=== PATIENT | female | born 1940 | race Caucasian/White ===

== ENCOUNTER 2021-10-20 18:54 | Emergency (ER) | payer MEDICARE, MEDICAID, SELFPAY ==
--- NOTE | ~2021-10-20 | CT_ITS ---
EXAMINATION: CT brain wo con DATE: 10/20/2021 20:26 INDICATION: Status post fall. Left cheek and mouth laceration. TECHNIQUE: Computed tomography (CT) of the head was performed without intravenous contrast. The dose- length product was 756.67 mGy-cm. Automated exposure control and iterative reconstruction technique w ere employed. COMPARISON: None FINDINGS: Generalized atrophy. There are scattered mild periventricular and subcortical white matter changes, most likely related to small vessel ischemic disease (microangiopathy). No ventriculomegaly or midline shift. Basilar cisterns are patent. Paranasal sinuses and mastoids are pneumatized. There is intracranial atherosclerosis. There is a mucous retention cyst of the sphenoid sinus. No acute int racranial hemorrhage, infarction, mass or mass effect. No depressed skull fractures. IMPRESSION: 1. No acute intracranial abnormality. 2: Chronic age-related findings. Reviewed, dictated and finalized at location A. SIDE GRINDER
--- NOTE | ~2021-10-20 | CT_ITS ---
EXAMINATION: CT facial & cervical spine wo DATE: 10/20/2021 20:26 INDICATION: Status post fall. Neck pain and cheek laceration. TECHNIQUE: Computed tomography (CT) of the maxillofacial region and cervical spine was performed with out intravenous contrast. The dose-length product was 412.56 mGy-cm. Automated exposure control and i terative reconstruction technique were employed. COMPARISON: None FINDINGS: MAXILLOFACIAL CT: There is a left facial soft tissue laceration. Nasal bones intact. Zygomatic arch is intact. No orbit al fracture is seen. There is scant mucosal thickening of the sinuses. Pterygoid plates within normal limits. Study limited by motion artifact. Mandible appears to be intact with symmetric temporomandib ular joints. There is atherosclerosis of the carotid arteries. No acute maxillofacial fracture. CERVICAL SPINE CT: Vertebral body heights are maintained. There is disc narrowing at multiple levels. There is degenerat edna anterolisthesis at C6-7. There is multilevel facet and uncinate hypertrophy with mild dextrocurva ture of the cervical spine. There is emphysema in the lung apices with apical pleural thickening/scar ring. No acute fracture is identified. IMPRESSION: 1. No acute facial or cervical spine fracture. Reviewed, dictated and finalized at location A. PUMPER
[2021-10-20 19:07] VITALS: BP 163/116; PULSE 103; RESP 22; TEMP 36.3; O2SAT 93
[2021-10-20 20:15] VITALS: BP 144/100; PULSE 86; RESP 17; O2SAT 94
[2021-10-20 20:17] VITALS: BP 140/100
--- NOTE | 2021-10-20 20:18 | PC.NURSE ---
1924: Nancy CALLED [facility] AND SPOKE WITH dr Doherty. Awaiting call back.
--- NOTE | 2021-10-20 20:21 | PC.NURSE ---
Pt. returned for X-Ray at this time via stretcher.
--- NOTE | 2021-10-20 20:22 | ED_ITS ---
HPI - Wound/Laceration General Chief Complaint: Wound/Laceration Stated Complaint: AMB Source: patient Mode of arrival: ambulatory Limitations: no limitations History of Present Illness HPI narrative: Pt tripped over ashtray and fell on the concrete. She sustained a large laceration to the left cheek Onset (ago): minute(s) Location: face Place: home Context: accidental Associated symptoms: none Review of Systems Review of Systems: All systems reviewed & are unremarkable except as noted in HPI and below PMFSH Past Medical History Medical History (Updated 10/20/21 @ 20:35 by Betsey Astorga MD) HTN (hypertension) Psychotic disorder Social History Social History (Updated 10/20/21 @ 20:31 by Betsey Astorga MD) Smoking status: Current every day smoker Alcohol intake: never Substance use: never Living arrangements: residential Exam Const: General: no acute distress and alert Orientation/consciousness: patient oriented x3 HENMT: Other: large left cheek laceration- concern for parotid gland/duct involvement Eyes: Conjunctivae: conjunctivae normal Pupils: Equal, round and reactive pupils present Neck: Neck: normal visual inspection Chest: Chest palpation & inspection: normal inspection of the chest Resp: Effort & Inspection: normal respiratory effort Auscultation: clear to auscultation bilaterally Cardio: Rate: regular rate Rhythm: regular rhythm GI: GI Palp: Yes Soft to palpation, No Tenderness to palpation present (GI) and No Guarding due to palpation present (GI) Back/Spine/Pelvis: Back: no CVA tenderness Skin: General skin exam: normal color Rashes: no rashes Neuro: General: patient oriented x3 and moves all extremities Extrem: General: normal to inspection Psych: Appearance: grossly normal Mental Status: mental status grossly normal Thought content: Yes Normal thought content present Course Vital Signs Vital signs: Vital Signs Temperature 36.3 C L 10/20/21 19:07 Pulse Rate 103 H 10/20/21 19:07 Respiratory Rate 22 H 10/20/21 19:07 Blood Pressure 163/116 H 10/20/21 19:07 Pulse Oximetry 93 10/20/21 19:07 Temperature 36.3 C L 10/20/21 19:07 Pulse Rate 86 10/20/21 20:15 Respiratory Rate 17 10/20/21 20:15 Blood Pressure 140/100 H 10/20/21 20:17 Pulse Oximetry 94 10/20/21 20:15 MDM - Wound/Laceration MDM Narrative Medical decision making narrative: concern for salivary duct involvement. D/w Dr. Watts- felt to be too complex due to potential parotid involvement. Differential Diagnosis Differential diagnosis: Likely laceration Discharge Plan Discharge Clinical Impression: Laceration Patient Disposition: Acute Care Hospital Condition: Stable Follow-up/Referrals: UNKNOWN,DOCTOR [Primary Care Provider] -
--- NOTE | 2021-10-20 20:22 | PC.NURSE ---
2005: Pt to x-ray via stretcher.
--- NOTE | 2021-10-20 20:24 | PC.NURSE ---
[facility] accepted Pt. Transfer.
--- NOTE | 2021-10-20 20:37 | PC.NURSE ---
Report called to Emilie NUNEZ at [facility].
[2021-10-20 20:38] LABS: Basophils Absolute Auto 0.07 K/mm3 (0.00-0.10); Basophils Percent Auto 0.7 % (0.0-1.0); Eosinophils Absolute Auto 0.09 K/mm3 (0.02-0.50); Eosinophils Percent Auto 0.9 % (1.0-6.0); Hematocrit 48.9 % (35.0-42.0); Hemoglobin 16.3 g/dL (11.7-13.8); Immature Granulocyte Absolute 0.05 K/mm3 (0.00-0.00); Immature Granulocyte Percent A 0.5 % (0.0-0.0); Lymphocytes Absolute Auto 1.52 K/mm3 (1.10-4.50); Mean Corpuscular HGB Conc 33.3 g/dL (32.0-36.0); Mean Corpuscular Hemoglobin 32.2 pg (27.0-31.0); Mean Corpuscular Volume 96.6 fL (78.0-102.0); Mean Platelet Volume 9.1 fl (9.2-11.8); Monocytes Percent Auto 5.9 % (2.0-11.0); Neutrophils Absolute Auto 7.8 K/mm3 (1.7-7.2); Platelet Count Result 191 K/mm3 (150-420); Red Blood Count 5.06 M/mm3 (4.20-5.40); Red Cell Distribution Width 12.6 % (11.6-14.4); White Blood Count 10.2 K/mm3 (4.8-10.8)
[2021-10-20 20:52] LABS: Prothrombin Time 11.1 Seconds (9.50-12.10)
[2021-10-20 20:54] LABS: Alanine Aminotransferase 14 U/L (14-59); Albumin Level 3.6 g/dL (3.4-5.0); Alkaline Phosphatase 73 U/L (46-116); Anion Gap 10 mmol/L (8-16); Aspartate Amino Transferase 24 U/L (15-37); Bilirubin,Total 0.4 mg/dL (0.00-1.00); Blood Urea Nitrogen 15 mg/dL (7-18); Calcium 8.8 mg/dL (8.5-10.1); Carbon Dioxide 27 mmol/L (21-32); Chloride 100 mmol/L (98-108); Estimated CRCL calculation 48 ml/min; Estimated Glomerular Filt Rate 55; Glucose 113 mg/dL (70-99); Osmolality Calculated 285 mOsm/kg (285-295); Potassium 3.9 mmol/L (3.5-5.1); Sodium 137 mmol/L (136-145); Total Protein 6.9 g/dL (6.4-8.2)
[2021-10-20] MEDS: TETANUS,DIPHTHERIA,AC PERTUSSIS ADULT 0.5 ML (ADACEL) IM (21:33)
--- NOTE | 2021-10-20 21:35 | PC.NURSE ---
[facility] called and here at this time to transport pt. Report was called to Emilie NUNEZ at [facility] in [place]. Pt. face, wet to dry dressing applied.
[2021-10-20 21:39] VITALS: BP 147/95; PULSE 84; RESP 20; TEMP 36.3; O2SAT 95
== END 2021-10-20 21:41 | disposition short-term general hospital (02) ==
PROVIDERS: Emergency Provider Emergency Medicine
DX: S01.412A Laceration without foreign body of left cheek and temporomandibular area, initial encounter (principal); W19.XXXA Unspecified fall, initial encounter; I10 Essential (primary) hypertension; F17.200 Nicotine dependence, unspecified, uncomplicated
CPT/HCPCS: 36415; 70450; 70486; 72125; 80053; 85025; 85610; 90471; 90715; 99285

== ENCOUNTER 2022-07-14 08:09 | Emergency (ER) | payer MEDICARE, MEDICAID, SELFPAY ==
[2022-07-14 08:27] VITALS: BP 174/99; PULSE 85; RESP 16; TEMP 36.4; O2SAT 98
--- NOTE | 2022-07-14 08:27 | PC.NURSE ---
patient was taken to bathroom and unable to urinate at this time. states too bad . erp notified according to paperwork from facility patient is incontinent of bowel and bladder.
--- NOTE | 2022-07-14 08:59 | ED.AMS ---
HPI - Altered Mental Status General Chief Complaint: Altered Mental Status Stated Complaint: POSSIBLE STROKE Time Seen by Provider: 07/14/22 08:12 Source: patient Mode of arrival: wheelchair Limitations: altered mental status History of Present Illness HPI narrative: this is a patient from [facility] that presents with altered mental status, patient is a DNR and this appears to be close to her baseline currently denies having any pain no fever chills no chest pain or shortness of breath patient is incontinent of bowel and and urine with no abdominal pain no flank pain no dysuria no nausea vomiting. complaint: altered mental status Onset (ago): hour(s) Timing confirmed by: caregiver Severity: mild Consistency of symptoms: waxing and waning Related Data Home Medications Medication Instructions Recorded Confirmed alprazolam 0.25 mg tablet 0.25 mg PO DAILY 07/14/22 07/14/22 buspirone 10 mg tablet 10 mg PO TID 07/14/22 07/14/22 buspirone 5 mg tablet 5 mg PO TID 07/14/22 07/14/22 divalproex 250 mg tablet,delayed 25 mg PO DAILY 07/14/22 07/14/22 release haloperidol 10 mg tablet 10 mg PO HS 07/14/22 07/14/22 haloperidol 5 mg tablet 5 mg PO DAILY 07/14/22 07/14/22 lisinopril 20 mg tablet 20 mg PO DAILY 07/14/22 07/14/22 oxybutynin chloride 5 mg 5 mg PO DAILY 07/14/22 07/14/22 tablet,extended release 24 hr quetiapine 50 mg tablet 50 mg PO DAILY 07/14/22 07/14/22 Allergies Allergy/AdvReac Type Severity Reaction Status Date / Time No Known Allergies Allergy Verified 07/14/22 08:37 Review of Systems Review of Systems: All systems reviewed & are unremarkable except as noted in HPI and below PMFSH Past Medical History Medical History HTN (hypertension) Psychotic disorder Social History Social History Smoking status: Current every day smoker Alcohol intake: never Substance use: never Exam Const: General: healthy appearing and no acute distress Limitations: no limitations HENMT: Head: normal to inspection Face and sinus: normal facial exam Eyes: Conjunctivae: conjunctivae normal Pupils: Equal, round and reactive pupils present Neck: Neck: normal visual inspection and no lymphadenopathy Chest: Chest palpation & inspection: normal inspection of the chest and abnormal inspection of the chest Resp: Effort & Inspection: normal respiratory effort Auscultation: wheezes Cardio: Rate: regular rate GI: GI Palp: Yes Soft to palpation Auscultation: normal bowel sounds Back/Spine/Pelvis: Back: no CVA tenderness Skin: General skin exam: normal color Rashes: no rashes Wounds: no wounds Neuro: General: patient oriented x3, moves all extremities and no meningeal signs Extrem: General: normal to inspection Psych: Mental Status: mental status grossly normal Affect: normal affect Course Course Emergency Course: Patient given a dose of ceftriaxone for upper respiratory tract infection. Vital Signs Vital signs: Vital Signs Temperature 36.4 C L 07/14/22 08:27 Pulse Rate 85 07/14/22 08:27 Respiratory Rate 16 07/14/22 08:27 Blood Pressure 174/99 H 07/14/22 08:27 Pulse Oximetry 98 07/14/22 08:27 Oxygen Delivery Room Air 07/14/22 08:27 Temperature 36.4 C L 07/14/22 08:27 Pulse Rate 85 07/14/22 08:27 Respiratory Rate 16 07/14/22 08:27 Blood Pressure 174/99 H 07/14/22 08:27 Pulse Oximetry 98 07/14/22 08:27 Oxygen Delivery Room Air 07/14/22 08:27 Critical Care Time Critical Care Time Critical Care Time: No Discharge Plan Discharge Clinical Impression: URI with cough and congestion Altered mental status Qualifiers: Altered mental status type: unspecified Qualified Code(s): R41.82 - Altered mental status, unspecified Patient Disposition: Home, Self-Care Condition: Stable Instructions: Antibiotic Form, Upper Respiratory Infectio
[2022-07-14 09:00] VITALS: BP 175/99; PULSE 85; RESP 16; TEMP 36.6; O2SAT 98
[2022-07-14] MEDS: cefTRIAXone 1 GM, LIDOCAINE HCL 1% LOCAL INJ 2.1 ML IM (09:10)
== END 2022-07-14 09:38 | disposition home or self-care (01) ==
PROVIDERS: Emergency Provider Emergency Medicine; PCP Internal Medicine
DX: J06.9 Acute upper respiratory infection, unspecified (principal); R41.82 Altered mental status, unspecified
CPT/HCPCS: 96372; 99283; J0696

== ENCOUNTER 2022-08-07 20:39 | Emergency (ER) | payer MEDICARE, MEDICAID, SELFPAY ==
--- NOTE | ~2022-08-07 | CT_ITS ---
EXAMINATION: 1. CT facial & cervical spine wo DATE: 08/07/2022 21:16 INDICATION: Facial injury and neck pain post fall TECHNIQUE: 1. Computed tomography (CT) of the maxillofacial region and of the cervical spine were performed with out intravenous contrast. Sagittal and coronal reconstructions of both regions were obtained. Automat ed exposure control and iterative reconstruction technique were employed. The dose-length product was 414.50 mGy-cm. COMPARISON: 10/20/2021 FINDINGS: Maxillofacial CT: Nondisplaced fracture along the floor of the right orbit with small amount of blood layering posterio rly in the right maxillary sinus. Tiny focus of gas within the orbit along the cephalad margin of the fracture line which extends along the infraorbital canal. A fat plane is observed between the inferi or rectus muscle and the infraorbital fracture plane with no evident entrapment. No other maxillofaci al fractures identified. Nasal septum is midline. Normal alignment at the bilateral temporomandibular joints with mild osteoarthritis. Patient is edentulous. There is enlargement of the sella with intac t thin corticated margins of the sella consistent with chronic expansion with remodeling. There is CS F attenuation throughout the sella which would favor empty sella syndrome or cystic lesion over a echo id pituitary adenoma, aneurysm or other solid mass. Cervical spine CT: Mild cervical dextrocurvature. Sagittal alignment is normal. Vertebral body heights are normal. No fr acture. Mild disc height loss at C2-C3 through C4-C5. Small posterior disc osteophyte complexes resul ting in mild central canal stenosis at C3-C4 through C5-C6. Multilevel severe bilateral cervical face t osteoarthritis and moderate cervical uncovertebral osteoarthritis. This contributes to moderate jesus ral foraminal stenosis on the left at C3-C4, bilaterally at C4-C5 and on the right at C5-C6. Mild jesus ral foraminal stenosis at the remaining of the cervical spine. Atherosclerotic coronary artery calcif ications along the bilateral common carotid arteries and at the lateral carotid bulbs. Mild emphysema and mild pleural parenchymal scarring at the bilateral apices of the lungs. IMPRESSION: 1. Nondisplaced fracture along the floor of the right orbit. 2. Fluid attenuation within the enlarged sella most likely related to empty sella syndrome although d ifferential would include a cystic pituitary lesion such as a craniopharyngioma. Could consider furth er evaluation with pre and postcontrast MRI as clinically indicated. 3. Cervical spondylosis with mild degenerative disc disease but severe multilevel cervical facet oste oarthritis. No acute osseous abnormality in the cervical spine. Reviewed, dictated and finalized at location A. IMPRESSION: 1. Nondisplaced fracture along the floor of the right orbit. 2. Fluid attenuation within the enlarged sella most likely related to empty dania la syndrome although differential would include a cystic pituitary lesion such as a craniopharyngioma. Could consider further evaluation with pre and postcont rast MRI as clinically indicated. 3. Cervical spondylosis with mild degenerative disc disease but severe multilev el cervical facet osteoarthritis. No acute osseous abnormality in the cervical spine.
--- NOTE | ~2022-08-07 | XR_ITS ---
EXAMINATION: XR forearm LT 2V DATE: 08/07/2022 21:44 INDICATION: Left forearm pain post injury TECHNIQUE: AP an lateral views of the left forearm were obtained. COMPARISON: none FINDINGS: Alignment is normal. No fracture. Moderate osteoarthritis at the first carpometacarpal joint. Mild os teoarthritis at the left elbow, wrist, midcarpal, triscaphe and first metacarpophalangeal joints. No elbow joint effusion. Focal soft tissue swelling posterior to the proximal ulnar diaphysis. IMPRESSION: 1. Mild to moderate polyarticular osteoarthritis most prominent at the first carpometacarpal joint. N o acute osseous abnormality. Reviewed, dictated and finalized at location A. IMPRESSION: 1. Mild to moderate polyarticular osteoarthritis most prominent at the first ca rpometacarpal joint. No acute osseous abnormality.
--- NOTE | ~2022-08-07 | XR_ITS ---
EXAMINATION: XR elbow RT min 3V DATE: 08/07/2022 21:43 INDICATION: Posterior right elbow laceration post fall TECHNIQUE: Anteroposterior, two oblique and lateral views of the right elbow were obtained. COMPARISON: None. FINDINGS: Alignment is normal. No fracture or joint effusion. Joint spaces are normal. Soft tissues are unremar kable.. A couple tiny calcific densities projecting over the soft tissues along the posterior aspect of the proximal forearm, most likely dystrophic calcifications but could not exclude foreign debris. IMPRESSION: 1. No right elbow joint effusion or acute osseous abnormality. Reviewed, dictated and finalized at location A.
--- NOTE | ~2022-08-07 | CT_ITS ---
EXAMINATION: CT brain wo con DATE: 08/07/2022 21:15 INDICATION: Facial injury. Status post fall. TECHNIQUE: Computed tomography (CT) of the head was performed without intravenous contrast. The dose- length product was 605.33 mGy-cm. Automated exposure control and iterative reconstruction technique w ere employed. COMPARISON: CT dated 10/20/2021 FINDINGS: Mild generalized brain parenchymal volume loss. There are scattered mild periventricular an d subcortical white matter changes, most likely related to small vessel ischemic disease (microangiop athy). Basilar cisterns are patent. No ventriculomegaly or midline shift. There is intracranial ather osclerosis. There is an air-fluid level in the right maxillary sinus which is high density, possibly hemorrhage. There is a right orbital floor fracture. There is a mucous retention cyst of the sphenoid sinus. There is intracranial atherosclerosis. No depressed skull fractures. IMPRESSION: 1. No acute intracranial abnormality. 2: Right orbital floor fracture with hemorrhage in the maxillary sinus. 3: Chronic age-related findings. Reviewed, dictated and finalized at location A.
--- NOTE | 2022-08-07 20:44 | ED.FALL ---
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 Denies any numbness or weakness or paresthesias. She was brought by EMS alert and oriented x4. Complains of headache, has a black eye on the right side skin tear and abrasion on right elbow without pain and skin tear abrasion left forearm with mild swelling. Says she is walking talking see any hearing fine has no nausea vomiting or diarrhea or recent illness. Denies any cough shortness of breath or chest pain or abdominal pain. Or fever. Related Data Home Medications Medication Instructions Recorded Confirmed alprazolam 0.25 mg tablet 0.25 mg PO DAILY 07/14/22 08/07/22 buspirone 10 mg tablet 10 mg PO TID 07/14/22 08/07/22 buspirone 5 mg tablet 5 mg PO TID 07/14/22 08/07/22 divalproex 250 mg tablet,delayed 25 mg PO DAILY 07/14/22 08/07/22 release haloperidol 10 mg tablet 10 mg PO HS 07/14/22 08/07/22 haloperidol 5 mg tablet 5 mg PO DAILY 07/14/22 08/07/22 lisinopril 20 mg tablet 20 mg PO DAILY 07/14/22 08/07/22 oxybutynin chloride 5 mg 5 mg PO DAILY 07/14/22 08/07/22 tablet,extended release 24 hr quetiapine 50 mg tablet 50 mg PO DAILY 07/14/22 08/07/22 Allergies Allergy/AdvReac Type Severity Reaction Status Date / Time No Known Allergies Allergy Verified 08/07/22 21:07 Review of Systems Review of Systems: All systems reviewed & are unremarkable except as noted in HPI and below Constitutional: Constitutional: Reports no additional constitutional complaints Eyes: Eyes: Reports no additional eye complaints, Denies change in vision and Denies photophobia ENT: Reports system reviewed and no additional complaints, except as documented, Reports as per HPI, Denies vertigo, Denies dizziness, Denies epistaxis, Denies nasal congestion and Denies sore throat Cardiovascular: Cardiovascular: Reports no additional cardiovascular complaints and Denies chest pain Respiratory: Respiratory: Reports no additional respiratory complaints, Denies cough and Denies dyspnea Gastrointestinal: Gastrointestinal: Reports no additional gastrointestinal complaints, Denies abdominal pain, Denies constipation, Denies heartburn, Denies diarrhea, Denies nausea and Denies vomiting Genitourinary: Genitourinary: Reports no additional female genitourinary complaints Musculoskeletal: Musculoskeletal: Reports no additional musculoskeletal complaints, Reports as per HPI, Denies back pain, Denies arthralgias and Denies joint swelling Integumentary/Breasts: Skin/Breast: Reports system reviewed and no additional complaints, except as docu and Reports as per HPI Neurologic: Reports system reviewed and no additional complaints, except as documented, Reports as per HPI, Denies confusion, Denies vertigo, Denies dizziness, Denies syncope, Denies headache(s), Denies focal weakness, Denies numbness and Denies weakness Psychiatric: Psychiatric: Reports no additional psychiatric complaints Hematologic/Lymphatic: Hematologic/Lymphatic: Denies no additional hematologic/lymphatic complaints [facility] Past Medical History Medical History HTN (hypertension) Psychotic disorder Social History Social History Smoking status: Current every day smoker Alcohol intake: never Substance use: never Exam Narrative: Patient is obese elderly white female appears in no apparent distress. Complain of a mild headache. Eyes pupils round react light , fundus exam bilateral catarracts, extraocular movements movement are in
[2022-08-07 20:50] VITALS: BP 179/79; PULSE 93; RESP 24; TEMP 36.2; O2SAT 93
[2022-08-07] MEDS: ACETAMINOPHEN 325 MG TABLET 650 MG PO (21:54)
[2022-08-07 23:22] VITALS: BP 150/74; PULSE 74; RESP 18; O2SAT 97
--- NOTE | 2022-08-07 23:28 | PC.NURSE ---
Call placed to [facility] for oncall [facility]NT, not [facility] tonight...will call [facility] for possible transfer/consult c trauma or ENT. Call placed to transfer line at [facility] and awaiting call back from Dr. Messer up walking hallway and to SHIRA iraheta.
--- NOTE | 2022-08-07 23:53 | PC.NURSE ---
Call back from [place] Dr Sigala, [facility] Dr Cardona spoke c for consultation and orders received for f/u c Dr Sigala in [place].
[2022-08-08] MEDS: CEPHALEXIN 500 MG CAPSULE PO (00:25)
[2022-08-08 00:27] VITALS: BP 150/85; PULSE 74; RESP 18; TEMP 36.4; O2SAT 97
== END 2022-08-08 00:40 | disposition home or self-care (01) ==
PROVIDERS: Emergency Provider Emergency Medicine; PCP Internal Medicine
DX: S02.31XA Fracture of orbital floor, right side, initial encounter for closed fracture (principal); S51.011A Laceration without foreign body of right elbow, initial encounter; S51.812A Laceration without foreign body of left forearm, initial encounter; W18.30XA Fall on same level, unspecified, initial encounter; I10 Essential (primary) hypertension; F17.200 Nicotine dependence, unspecified, uncomplicated
CPT/HCPCS: 70450; 70486; 72125; 73080; 73090; 99284; A9270

== ENCOUNTER 2022-09-26 14:56 | Emergency (ER) | payer MEDICARE, MEDICAID, SELFPAY ==
--- NOTE | ~2022-09-26 | CT_ITS ---
EXAMINATION: CT pelvis wo con DATE: 09/26/2022 16:29 INDICATION: Left hip pain, status post multiple falls. TECHNIQUE: Computed tomography (CT) of the pelvis was performed without intravenous contrast. Automat ed exposure control and iterative reconstruction technique were employed. The dose-length product was 355.60 mGy-cm. COMPARISON: None FINDINGS: Incompletely visualized 5.6 cm fluid-filled structure in the right abdomen, possibly repres enting a distended gallbladder. 5.0 cm infrarenal fusiform abdominal aortic aneurysm. Mild bilateral perinephric stranding and cortical thinning. Diverticulosis without diverticulitis. 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 Moderate bilateral hip osteoarthritis. Osteitis pubis. Bilateral sacro iliitis. IMPRESSION: 1. 5.6 cm fluid-filled structure in the right abdomen, possibly representing a hydropic gallbladder. 2. 5.0 cm infrarenal abdominal aortic aneurysm, recommend ultrasound of the aorta in 3-6 months for s urveillance. 3. No acute osseous finding in the left hip or pelvis. Reviewed, dictated and finalized at location K. [employer] IMPRESSION: 1. 5.6 cm fluid-filled structure in the right abdomen, possibly representing a hydropic gallbladder. 2. 5.0 cm infrarenal abdominal aortic aneurysm, recommend ultrasound of the aor ta in 3-6 months for surveillance. 3. No acute osseous finding in the left hip or pelvis.
[2022-09-26 15:56] VITALS: BP 172/88; PULSE 67; RESP 16; TEMP 36.4; O2SAT 94
[2022-09-26] MEDS: SODIUM CHLORIDE 0.9% IV 500 ML 999 ML IV CONT (17:25)
[2022-09-26] MEDS: traMADol HCL (*CRX) 50 MG TABLET PO (17:26)
[2022-09-26 17:41] LABS: Basophils Absolute Auto 0.07 K/mm3 (0.00-0.10); Basophils Percent Auto 0.9 % (0.0-1.0); Eosinophils Absolute Auto 0.17 K/mm3 (0.02-0.50); Eosinophils Percent Auto 2.2 % (1.0-6.0); Hematocrit 45.8 % (35.0-42.0); Hemoglobin 15.3 g/dL (11.7-13.8); Immature Granulocyte Absolute 0.05 K/mm3 (0.00-0.00); Immature Granulocyte Percent A 0.6 % (0.0-0.0); Lymphocytes Absolute Auto 2.07 K/mm3 (1.10-4.50); Lymphocytes Percent Auto 26.5 % (18.0-42.0); Mean Corpuscular HGB Conc 33.4 g/dL (32.0-36.0); Mean Corpuscular Hemoglobin 31.9 pg (27.0-31.0); Mean Corpuscular Volume 95.4 fL (78.0-102.0); Mean Platelet Volume 8.7 fl (9.2-11.8); Monocytes Absolute Auto 0.57 K/mm3 (0.10-0.90); Monocytes Percent Auto 7.3 % (2.0-11.0); Neutrophils Absolute Auto 4.9 K/mm3 (1.7-7.2); Neutrophils Percent Auto 62.5 % (50.0-70.0); Platelet Count Result 194 K/mm3 (150-420); Red Cell Distribution Width 13.2 % (11.6-14.4); White Blood Count 7.8 K/mm3 (4.8-10.8)
[2022-09-26 17:57] LABS: Alanine Aminotransferase 14 U/L (14-59); Albumin Level 3.4 g/dL (3.4-5.0); Alkaline Phosphatase 67 U/L (46-116); Anion Gap 10 mmol/L (8-16); Aspartate Amino Transferase 28 U/L (15-37); Bilirubin,Total 0.4 mg/dL (0.00-1.00); Blood Urea Nitrogen 22 mg/dL (7-18); Calcium 8.7 mg/dL (8.5-10.1); Carbon Dioxide 26 mmol/L (21-32); Chloride 100 mmol/L (98-108); Estimated Glomerular Filt Rate 58; Glucose 95 mg/dL (70-99); Osmolality Calculated 285 mOsm/kg (285-295); Potassium 4.3 mmol/L (3.5-5.1); Sodium 136 mmol/L (136-145)
[2022-09-26 18:02] LABS: Lactic Acid Reflex 1.1 mmol/L (0.4-2.0)
--- NOTE | 2022-09-26 18:53 | ED.FALL ---
HPI - Fall General Chief Complaint: Fall Stated Complaint: fell over weekend slid out of bed left leg pain Time Seen by Provider: 09/26/22 14:59 Source: patient and RN notes reviewed Mode of arrival: wheelchair Limitations: no limitations History of Present Illness MD complaint: fall Onset (ago): hour(s) (4) Fall witnessed: no Place fall occurred: half-way/SNF Loss of consciousness: none Prolonged down time: no Symptoms prior to fall: none Context: tripped/slipped Location of injury: pelvis (left hip) Location of injury - extremities: Left: thigh Severity scale (1-10): 4 Quality: dull and aching Related Data Home Medications Medication Instructions Recorded Confirmed alprazolam 0.25 mg tablet 0.25 mg PO DAILY 07/14/22 09/26/22 buspirone 10 mg tablet 10 mg PO TID 07/14/22 09/26/22 buspirone 5 mg tablet 5 mg PO TID 07/14/22 09/26/22 divalproex 250 mg tablet,delayed 25 mg PO DAILY 07/14/22 09/26/22 release haloperidol 10 mg tablet 10 mg PO HS 07/14/22 09/26/22 haloperidol 5 mg tablet 5 mg PO DAILY 07/14/22 09/26/22 lisinopril 20 mg tablet 20 mg PO DAILY 07/14/22 09/26/22 oxybutynin chloride 5 mg 5 mg PO DAILY 07/14/22 09/26/22 tablet,extended release 24 hr quetiapine 50 mg tablet 50 mg PO DAILY 07/14/22 09/26/22 Allergies Allergy/AdvReac Type Severity Reaction Status Date / Time No Known Allergies Allergy Verified 09/26/22 16:02 Review of Systems Review of Systems: All systems reviewed & are unremarkable except as noted in HPI and below Constitutional: Constitutional: Reports no additional constitutional complaints Eyes: Eyes: Reports no additional eye complaints ENT: Reports system reviewed and no additional complaints, except as documented Cardiovascular: Cardiovascular: Reports no additional cardiovascular complaints Respiratory: Respiratory: Reports no additional respiratory complaints Gastrointestinal: Gastrointestinal: Reports no additional gastrointestinal complaints Genitourinary: Genitourinary: Reports no additional female genitourinary complaints Musculoskeletal: Musculoskeletal: Reports no additional musculoskeletal complaints and Reports arthralgias Integumentary/Breasts: Skin/Breast: Reports system reviewed and no additional complaints, except as docu Neurologic: Reports system reviewed and no additional complaints, except as documented Psychiatric: Psychiatric: Reports no additional psychiatric complaints Endocrine: Endocrine: Reports no additional endocrine complaints Hematologic/Lymphatic: Hematologic/Lymphatic: Reports no additional hematologic/lymphatic complaints Allergic/Immunologic: Allergic/Immunologic: Reports no additional allergic/immunologic complaints PMFSH Past Medical History Medical History HTN (hypertension) Left hip pain Psychotic disorder Social History Social History Smoking status: Current every day smoker Alcohol intake: never Substance use: never Exam Const: General: no acute distress and well nourished Nutritional Appearance: well nourished Orientation/consciousness: patient oriented x3 Limitations: no limitations HENMT: Head: normal to inspection Ears: external ears normal, TM's normal bilaterally and EAC's normal Face/Nose/Sinus: Normal external nose present, Normal nares present, normal facial exam and sinuses nontender Face and sinus: normal facial exam and sinuses nontender Mouth: Yes Normal oral and palatal mucosa present and Yes moist mucous membranes Teeth and gingiva: dentition normal Throat: posterior oropharynx normal Eyes: Conjunctivae: conjunctivae normal Pupils: Equal, round and reactive pupils present EOM: EOMs intact bilaterally Neck: Neck: normal visual inspection, no lymphadenopathy and no meningeal signs Chest: Chest palpation & inspection: normal inspection of the chest Resp: Effort & Inspection
[2022-09-26 19:29] VITALS: BP 160/85; PULSE 65; RESP 16; O2SAT 95
== END 2022-09-26 19:32 | disposition home or self-care (01) ==
PROVIDERS: Emergency Provider Emergency Medicine; PCP Internal Medicine
DX: S70.02XA Contusion of left hip, initial encounter (principal); S70.12XA Contusion of left thigh, initial encounter; K82.9 Disease of gallbladder, unspecified; W06.XXXA Fall from bed, initial encounter; I10 Essential (primary) hypertension; F17.200 Nicotine dependence, unspecified, uncomplicated
CPT/HCPCS: 36415; 72192; 80053; 83605; 85025; 96360; 99284; A9270; J7040

== ENCOUNTER 2023-06-04 18:05 | Emergency (ER) | payer MEDICARE, MEDICAID, SELFPAY ==
[2023-06-04] VITALS (19 sets, daily range): BP systolic 123–210; BP diastolic 89–132; PULSE 62–108; RESP 0–40; TEMP 36.1–37.2; O2SAT 92–100
--- NOTE | ~2023-06-04 | CT_ITS ---
EXAMINATION: CT brain wo con DATE: 06/04/2023 19:38 INDICATION: ams . TECHNIQUE: Computed tomography (CT) of the head was performed without intravenous contrast. The mA wa s adjusted according to patient size. Iterative reconstruction technique was employed. The dose-lengt h product was 681.00 mGy-cm. COMPARISON: 08/07/2022. FINDINGS: Partially visualized endotracheal and nasogastric tubes. No acute intracranial hemorrhage or extra-axial fluid collection. No hydrocephalus, mass, or herniation. No acute ischemic infarct. Unremarkable dural venous sinus attenuation. No acute osseous abnormality. Hyperostosis. Old right orbital floor fracture. Trace bilateral mastoid fluid, mucosal thickening in the ethmoid air cells, aerated secretions in the nasopharynx, the remaining aerated spaces are clear. Moderate atrophy and chronic white matter change. Atherosclerotic intracranial calcification. Enlarge d sella turcica. IMPRESSION: No acute intracranial process. Reviewed, dictated and finalized at location K.
--- NOTE | ~2023-06-04 | XR_ITS ---
EXAMINATION: XR chest ET placement Exam Date/Time: 06/04/2023 18:56 CDT HISTORY: post intubation Comparison: None. RESULT: Lines, tubes, and devices: Endotracheal tube terminating 3.6 cm above the beob. Subdiaphragmatic N G tube. Lungs and pleura: Slightly decreased lung volumes with crowding. Mild diffuse reticular opacities. Cardiomediastinal silhouette: Mild arch calcification and ectasia, mildly dilated central pulmonary arteries as can be seen with pulmonary arterial hypertension, otherwise unremarkable. Other: No acute osseous or upper abdominal finding. IMPRESSION: Endotracheal tube in good position. Mild interstitial edema. Reviewed, dictated and finalized at location K.
--- NOTE | ~2023-06-04 | XR_ITS ---
EXAM: XR_KUBGTUBINS_CR DATE: 06/04/2023 19:11 HISTORY: OG TUBE PLACEMENT . COMPARISON: None available. FINDINGS: Cholecystectomy clips normal appearing partially visualized bowel gas pattern. Granulomas calcifications overlying the spleen. NG tube, tip and side port in the antrum and body of the stomach respectively. IMPRESSION: NG tube projects over the stomach. Reviewed, dictated and finalized at location K.
[2023-06-04] MEDS: SODIUM CHLORIDE 0.9% IV 1,000 ML 100 ML IV CONT (18:05)
[2023-06-04] MEDS: ETOMIDATE 20 MG/10 ML AMPUL IV PUSH (18:20)
[2023-06-04] MEDS: ROCURONIUM BROMIDE 50 MG/5 ML VIAL 100 MG IV PUSH (18:21)
--- NOTE | 2023-06-04 18:29 | ECG_ITS ---
Measurements Intervals [place] Rate: 85 P: 29 DE: 168 QRS: 14 QRSD: 78 T: 57 QT: 356 QTc: 424 Interpretive Statements SINUS RHYTHM VENTRICULAR PREMATURE COMPLEXES LOW QRS VOLTAGE IN PRECORDIAL LEADS BORDERLINE T WAVE ABNORMALITY- ANTEROLAT/HIGH LAT LEADS BASELINE ARTIFACT- I, III, AVF, V1-V6 BORDERLINE ECG NO PREVIOUS ECG AVAILABLE FOR COMPARISON Electronically Signed On 06-05-2023 0:24:20 CDT by Shamar Soto D.O.
[2023-06-04] MEDS: PROPOFOL IV EMULSION 100 ML 2.1 MG IV CONT (18:35)
--- NOTE | 2023-06-04 18:43 | ED.GENADULT ---
HPI - General Adult General Chief complaint: Unspecified Stated complaint: unresponsive Time Seen by Provider: 06/04/23 18:10 Source: EMS History of Present Illness HPI narrative: 82-year-old female presenting unresponsive. Per EMS, the patient may have been administered another patient's medications at her living facility. She reportedly received gabapentin and clozapine. she presents minimally responsive to painful stimuli. Medications administered approximately 2 hours ago. Related Data Home Medications Medication Instructions Recorded Confirmed alprazolam 0.25 mg tablet 0.25 mg PO DAILY 07/14/22 06/04/23 buspirone 10 mg tablet 10 mg PO TID 07/14/22 06/04/23 buspirone 5 mg tablet 5 mg PO TID 07/14/22 06/04/23 divalproex 250 mg tablet,delayed 25 mg PO DAILY 07/14/22 06/04/23 release haloperidol 10 mg tablet 10 mg PO HS 07/14/22 06/04/23 haloperidol 5 mg tablet 5 mg PO DAILY 07/14/22 06/04/23 lisinopril 20 mg tablet 20 mg PO DAILY 07/14/22 06/04/23 oxybutynin chloride 5 mg 5 mg PO DAILY 07/14/22 06/04/23 tablet,extended release 24 hr quetiapine 50 mg tablet 50 mg PO DAILY 07/14/22 06/04/23 calcium polycarbophil 625 mg 625 mg PO DAILY 06/04/23 06/04/23 tablet (Fiber-Lax) cholecalciferol (vitamin D3) 25 See Rx Instructions .Route .COMPLEX 06/04/23 06/04/23 mcg (1,000 unit) tablet rosuvastatin 10 mg tablet 10 mg PO DAILY 06/04/23 06/04/23 Allergies Allergy/AdvReac Type Severity Reaction Status Date / Time No Known Allergies Allergy Verified 06/04/23 19:02 [facility], [facility] Past Medical History Medical History HTN (hypertension) Left hip pain Psychotic disorder Social History Social History Smoking status: Current every day smoker Alcohol intake: never Substance use: never Living arrangements: residential Exam Const: General: patient obtunded; No alert or awake Nutritional Appearance: overweight Orientation/consciousness: patient obtunded HENMT: Head: normal to inspection, normocephalic and atraumatic Ears: external ears normal Face/Nose/Sinus: Normal external nose present and Normal nares present Face and sinus: normal facial exam and face symmetric Mouth: Yes oropharynx normal and Yes moist mucous membranes Throat: posterior oropharynx normal and uvula midline Eyes: Eyelids: eyelids normal Conjunctivae: conjunctivae normal Neck: Neck: normal visual inspection Thyroid: symmetrical Chest: Chest palpation & inspection: normal inspection of the chest and normal palpation of entire chest wall Resp: Effort & Inspection: decreased respiratory effort and no stridor Cardio: Jugular venous distension: no JVD Rate: regular rate GI: Inspection: normal to inspection and no edema Skin: General skin exam: normal color and turgor normal Neuro: Other: Patient is Unresponsive to verbal stimuli. Minimally responsive to painful stimuli. GCS less than 8. Course Vital Signs Vital signs: Vital Signs Temperature 36.1 C L 06/04/23 18:05 Pulse Rate 93 06/04/23 18:05 Respiratory Rate 40 H 06/04/23 18:05 Blood Pressure 200/101 H 06/04/23 18:05 Pulse Oximetry 99 06/04/23 18:05 Oxygen Delivery Non-Rebreather Mask 06/04/23 18:05 Oxygen Flow Rate 15 06/04/23 18:05 Temperature 36.1 C L 06/04/23 18:05 Pulse Rate 83 06/04/23 18:45 Respiratory Rate 28 H 06/04/23 18:45 Blood Pressure 210/132 H 06/04/23 18:45 Pulse Oximetry 99 06/04/23 18:45 Oxygen Delivery Mechanical Ventilation 06/04/23 18:44 Oxygen Flow Rate 15 06/04/23 18:30 Fraction of Inspired Oxygen 50 06/04/23 18:45 Procedures Intubation Intubation #1: Intubation Date: 06/04/23 Intubation Time: 18:48 sedative: Etomidate Mg Given: 20 paralytic: Rocuronium Mg Given: 100 Laryngoscope: fiber optic video scope Tube Si
[2023-06-04 18:54] LABS: Basophils Absolute Auto 0.03 K/mm3 (0.00-0.10); Basophils Percent Auto 0.7 % (0.0-1.0); Eosinophils Absolute Auto 0.12 K/mm3 (0.02-0.50); Hematocrit 40.3 % (35.0-42.0); Hemoglobin 13.2 g/dL (11.7-13.8); Immature Granulocyte Absolute 0.03 K/mm3 (0.00-0.00); Immature Granulocyte Percent A 0.7 % (0.0-0.0); Immature Platelet Fraction Pct 0.9 % (1.0-7.0); Lymphocytes Absolute Auto 1.07 K/mm3 (1.10-4.50); Lymphocytes Percent Auto 26.7 % (18.0-42.0); Mean Corpuscular HGB Conc 32.8 g/dL (32.0-36.0); Mean Corpuscular Hemoglobin 31.5 pg (27.0-31.0); Mean Corpuscular Volume 96.2 fL (78.0-102.0); Mean Platelet Volume 9.4 fl (9.2-11.8); Monocytes Absolute Auto 0.32 K/mm3 (0.10-0.90); Neutrophils Absolute Auto 2.4 K/mm3 (1.7-7.2); Neutrophils Percent Auto 60.9 % (50.0-70.0); Platelet Count Result 101 K/mm3 (150-420); Red Blood Count 4.19 M/mm3 (4.20-5.40); Red Cell Distribution Width 13.1 % (11.6-14.4)
[2023-06-04 19:04] LABS: Appearance Urine Clear (Clear); Bilirubin Urine Negative (Negative); Blood Urine Negative (Negative); Color Urine Light Yellow (Yellow); Glucose Urine UA Negative (Negative); Ketones Urine Negative (Negative); Leukocyte Esterase Ur Negative LEU/UL (Negative); Nitrate Urine Negative (Negative); Protein Urine Negative (Negative); Urobilinogen Urine 0.2 mg/dL (0.2-1.0); pH Urine 7.5 (5.0-8.0)
[2023-06-04 19:05] LABS: Acetaminophen 12 ug/mL (10-30); Alanine Aminotransferase 12 U/L (14-59); Albumin Level 2.8 g/dL (3.4-5.0); Alkaline Phosphatase 65 U/L (46-116); Anion Gap 8 mmol/L (8-16); Aspartate Amino Transferase 12 U/L (15-37); Bilirubin,Total 0.3 mg/dL (0.00-1.00); Blood Urea Nitrogen 19 mg/dL (7-18); Calcium 7.5 mg/dL (8.5-10.1); Carbon Dioxide 26 mmol/L (21-32); Chloride 108 mmol/L (98-108); Estimated Glomerular Filt Rate 56; Glucose 125 mg/dL (70-99); Osmolality Calculated 297 mOsm/kg (285-295); Potassium 3.3 mmol/L (3.5-5.1); Salicylate 1.2 mg/dL (2.8-20.0); Sodium 142 mmol/L (136-145); Total Protein 5.7 g/dL (6.4-8.2); Troponin I 5.8 ng/L (0.00-60.4)
[2023-06-04 19:09] LABS: Add Urine Microscopic? NO; Amphetamine Screen Urine Negative (Negative); Barbiturate Screen Urine Negative (Negative); Benzodiazepines Screen Urine Negative (Negative); Cannabinoid Screen Urine Negative (Negative); Cocaine Screen Urine Negative (Negative); Ethanol < 3 mg/dL (0-6); Methadone Screen Urine Negative (Negative); Opiate Screen Urine Negative (Negative); Phencyclidine Screen Urine Negative (Negative)
--- NOTE | 2023-06-04 22:14 | PC.NURSE ---
david down during care, notes on code sheet
== END 2023-06-04 21:50 | disposition short-term general hospital (02) ==
PROVIDERS: Emergency Provider Emergency Medicine; PCP Internal Medicine
DX: R40.4 Transient alteration of awareness (principal); I10 Essential (primary) hypertension; F17.200 Nicotine dependence, unspecified, uncomplicated; Z79.899 Other long term (current) drug therapy
CPT/HCPCS: 31500; 36415; 70450; 80053; 80307; 81003; 84484; 85025; 85055; 93005; 96365; 96366; 96375; 99285; J2704; J7030